=== PATIENT | female | born 1990 | race Caucasian/White ===

== ENCOUNTER 2018-03-24 10:24 | Emergency (ER) | payer OTHER, SELFPAY ==
[~2018-03-24] VITALS: Ht 170.2 cm; Wt 100.0 kg
[2018-03-24 14:30] VITALS: BP 125/89
== END 2018-03-24 14:32 | disposition home or self-care (01) ==
LOC: ER 13:58
DX: M79.18 Myalgia, other site (principal)
CPT/HCPCS: 81025; 93971; 99284